=== PATIENT | female | born 1940 | race Caucasian/White ===

== ENCOUNTER 2019-06-19 22:09 | Emergency (ER) | payer MEDICARE ==
[~2019-06-19] VITALS: Ht 162.6 cm; Wt 83.5 kg
[2019-06-19 22:10] VITALS: BP 143/59
[2019-06-19] MEDS ORDERED: AMOXICILLIN/K CLAV 875/125MG TABLET. PO ONE (22:30)
[2019-06-19] MEDS ORDERED: NEOMY/BACITR/POLYMYXIN OINT PACKET. TP ONE (22:30)
[2019-06-19] MEDS ORDERED: DIPHTH,PERTUSS(ACELL),TET TOX 0.5 ML DISP.SYRIN. VAX IM ONE (22:45)
[2019-06-19] MEDS ORDERED: AMOX1TAB61 PO (23:00)
[2019-06-19] MEDS ORDERED: MUPI1OIN6 TP (23:00)
--- NOTE | 2019-06-19 23:00 | PHYS DOC ---
Adult General Chief Complaint Chief Complaint: ANIMAL BITE HPI HPI Patient is a [age] year old [sex] who presents with [] Review of Systems Review of Systems Constitutional: Denies fever or chills [] Eyes: Denies change in visual acuity, redness, or eye pain [] HENT: Denies nasal congestion or sore throat [] Respiratory: Denies cough or shortness of breath [] Cardiovascular: No additional information not addressed in HPI [] GI: Denies abdominal pain, nausea, vomiting, bloody stools or diarrhea [] : Denies dysuria or hematuria [] Musculoskeletal: Denies back pain or joint pain [] Integument: Denies rash or skin lesions [] Neurologic: Denies headache, focal weakness or sensory changes [] Endocrine: Denies polyuria or polydipsia [] All other systems were reviewed and found to be within normal limits, except as documented in this note. Current Medications Current Medications Current Medications Medications (Trade) Dose Ordered Sig/Arash Start Time Stop Time Status Last Admin Dose Admin Amoxicillin/ Clavulanate Potassium (Augmentin 875/ 125mg) 1 tab 1X ONCE 06/19/19 22:30 06/19/19 22:40 DC Diphtheria/ Tetanus/Acell Pertussis (Boostrix) 0.5 ml ONCE ONCE 06/19/19 22:45 06/19/19 22:53 DC Neomycin/ Polymyxin/ Bacitracin (Triple Antibiotic Ointment) 1 pkt 1X ONCE 06/19/19 22:30 06/19/19 22:40 DC Allergies Allergies Allergies Coded Allergies Type Severity Reaction Last Updated Verified iodine Allergy Unknown 06/19/19 Yes Physical Exam Physical Exam Constitutional: Well developed, well nourished, no acute distress, non-toxic appearance. [] HENT: Normocephalic, atraumatic, bilateral external ears normal, oropharynx moist, no oral exudates, nose normal. [] Eyes: PERRLA, EOMI, conjunctiva normal, no discharge. [] Neck: Normal range of motion, no tenderness, supple, no stridor. [] Cardiovascular:Heart rate regular rhythm, no murmur [] Lungs & Thorax: Bilateral breath sounds clear to auscultation [] Abdomen: Bowel sounds normal, soft, no tenderness, no masses, no pulsatile masses. [] Skin: Warm, dry, no erythema, no rash. [] Back: No tenderness, no CVA tenderness. [] Extremities: No tenderness, no cyanosis, no clubbing, ROM intact, no edema. [] Neurologic: Alert and oriented X 3, normal motor function, normal sensory function, no focal deficits noted. [] Psychologic: Affect normal, judgement normal, mood normal. [] EKG EKG [] Radiology/Procedures Radiology/Procedures [] Course & Med Decision Making Course & Med Decision Making Pertinent Labs and Imaging studies reviewed. (See chart for details) [] Dragon Disclaimer Dragon Disclaimer This electronic medical record was generated, in whole or in part, using a voice recognition dictation system. Departure Departure: Impression: Primary Impression: Dog bite Additional Impression: Hematoma Disposition: 01 HOME, SELF-CARE Condition: STABLE Patient Instructions: Animal Bite, [id number], Hematoma, [id number], Skin Tear Care, [id number] Additional Instructions: Use over the counter Tylenol and/or Naproxen for pain Scripts Mupirocin (Mupirocin) 1 Gm Oin.pf.daniela 1 DANIELA TP TID for Dog bite for 7 Days, #1 GM Prov: MAURIZIO GODWIN DO 06/19/19 Amoxicillin/Potassium Clav (AUGMENTIN 875-125 TABLET) 1 Each Tablet 1 TAB PO BID for Dog bite, #14 TAB Prov: MAURIZIO GODWIN DO 06/19/19 Problem Qualifiers Primary Impression: Dog bite Encounter type: initial encounter Qualified Codes: W54.0XXA - Bitten by dog, initial encounter MAURIZIO GODWIN DO Jun 19, 2019 23:00
--- NOTE | 2019-06-20 08:06 | RAD ---
EXAM: PA, oblique and lateral views of the right wrist DATE: 06/19/2019 10:29 PM INDICATION: Right wrist pain, swelling COMPARISON: No Prior FINDINGS/ IMPRESSION: 1. Marked soft tissue swelling is seen at the dorsal and medial aspect of the right wrist with foci of soft tissue gas. 2. No definite retained radiopaque foreign body. 3. No evidence of acute fracture or dislocation. 4. Advanced thumb CMC joint osteoarthritis. 5. Decreased bone mineral density. Electronically signed by: Jonas Delgado MD (06/20/2019 8:04 AM) [facility]
== END 2019-06-19 23:26 | disposition home or self-care (01) ==
LOC: ER 22:09
DX: S61.551A Open bite of right wrist, initial encounter (principal); S60.211A Contusion of right wrist, initial encounter; Z88.8 Allergy status to other drugs, medicaments and biological substances; W54.0XXA Bitten by dog, initial encounter; Y93.89 Activity, other specified; Y92.89 Other specified places as the place of occurrence of the external cause; Y99.8 Other external cause status
CPT/HCPCS: 73110; 90471; 90715; 99284-25